=== PATIENT | male | born 1950 | race Caucasian/White ===

== ENCOUNTER → 2020-11-09 | Outpatient (CLI) | payer OTHER ==
[~2020-11-09] MED LIST: ALBU90I INH; ALBU90OI61 INH; ALPR1; AMLO10 PO; AMLO5 PO; ASPI325 PO; ASPI81EC PO; ATOR40TA PO; BENAML20/5; CHLO25 PO; CLON1; CLON1 PO; CLOP75 PO; DIPATR PO; EFFIENT PO; FLUSAL2505 INH; FURO20 PO; FURO40 PO; GEMF600 PO; HYDACE5; HYDACE5 PO; HYDCHL50; HYDPAM50 PO; LISI20 PO; LORA1 PO; LORA2 PO; LOSHYD PO; LOVA20 PO; LOVA40; METF500 PO; METO100ER PO; METO50ER PO; MOMENI; NAPR550 PO; NEBI10 PO; NITR.4SL SL; Norco 5-325 Ta1 EACH PO; OMEP20ER; OMEP20ER PO; OMEP40CA12 PO; OXYACE5T PO; PANT40 PO; POTCHL10ER PO; POTCHL20ER PO; PROM25 PO; Prilosec Otc20 MG PO; RANI150 PO; RXHYD5325 PO; RXOXYACE PO; RXSULTRIDS PO; SULTRIDS PO; TORSE20 PO; TRAZ150T57 PO; TRAZ50 PO; VENL75; WARF4 PO; WARF6 PO; Zofran Odt8 MG SL; [UNRECOGNIZED DRUG - REMARK]
[2020-11-09 13:41] LABS: BASOPHILS ABSOLUTE AUTO 0.07 K/mm3 (0.00-0.23); BASOPHILS PERCENT AUTO 1 % (0-2); EOSINOPHILS ABSOLUTE AUTO 0.37 K/mm3 (0.00-0.68); EOSINOPHILS PERCENT AUTO 4 % (0-6); Hematocrit 46.1 % (37.0-53.0); Hemoglobin 14.9 g/dL (13.5-17.5); IMMATURE GRAN ABSOLUTE AUTO 0.04 K/mm3 (0.00-0.10); IMMATURE GRAN PERCENT AUTO 0 % (0-1); LYMPHOCYTES ABSOLUTE AUTO 2.38 K/mm3 (0.84-5.20); LYMPHOCYTES PERCENT AUTO 23 % (21-46); MONOCYTES ABSOLUTE AUTO 0.52 K/mm3 (0.16-1.47); MONOCYTES PERCENT AUTO 5 % (4-13); Mean Corpuscular HGB 27.9 pg (26.0-34.0); Mean Corpuscular HGB Conc 32.3 g/dL (31.5-36.5); Mean Corpuscular Volume 86 fL (80-100); NEUTROPHILS ABSOLUTE AUTO 6.86 K/mm3 (1.96-9.15); NEUTROPHILS PERCENT AUTO 67 % (41-73); Platelet Count 274 K/mm3 (150-400); RDW Coefficient Variation 13.2 % (11.7-14.2); RDW Standard Deviation 41.4 fL (35.1-46.3); Red Blood Cell Count 5.35 M/mm3 (4.30-5.90); White Blood Cell Count 10.24 K/mm3 (4.00-11.30)
[2020-11-09 13:59] LABS: Alanine Aminotransfer (ALT/SGP 28 U/L (12-78); Albumin, Blood 3.8 g/dL (3.4-5.0); Albumin/Globulin Ratio 0.9 (0.8-1.8); Alk Phos 99 U/L (50-136); Anion Gap 5 mmol/L (6-16); Aspartate Aminotrans (AST/SGOT 12 U/L (12-37); Bilirubin, Total 0.4 mg/dL (0.1-1.0); Blood Urea Nitrogen 17 mg/dL (8-24); Bun/Creatinine Ratio 18.8 (12.0-20.0); CO2, Blood 32 mmol/L (21-32); Chloride, Blood 102 mmol/L (98-108); Globulin, Blood 4.2 g/dL (2.2-4.0); Glomerular Filtration Rate >60 (60-); Glucose, Blood 117 mg/dL (70-99); Sodium, Blood 139 mmol/L (136-145)
== END | disposition home or self-care (01) ==
LOC: LAB 12:17 → LAB SHORT 12:17
PROVIDERS: Nurse Practitioner
DX: R10.32 Left lower quadrant pain (principal)
CPT/HCPCS: 80053; 83690; 85025

== ENCOUNTER → 2021-05-18 | Outpatient (CLI) | payer OTHER ==
[2021-05-18 16:05] LABS: International Normalized Ratio 1.61; Prothrombin Time Results 16.4 Sec (9.7-11.5)
[2021-05-19 09:11] LABS: A/G RATIO 1.8 (1.2-2.2); ALKALINE PHOSPHATASE, S 81 IU/L (44-121); ALT (SGPT) 21 IU/L (0-44); AST (SGOT) 19 IU/L (0-40); BILIRUBIN, TOTAL 0.4 mg/dL (0.0-1.2); BUN 15 mg/dL (8-27); BUN/CREATININE RATIO 20 (10-24); CARBON DIOXIDE, TOTAL 23 mmol/L (20-29); CHLORIDE, SERUM 105 mmol/L (96-106); CHOLESTEROL, TOTAL 108 mg/dL (100-199); CREATININE, SERUM 0.74 mg/dL (0.76-1.27); EGFR IF AFRICN AM 110 (>59); EGFR IF NONAFRICN AM 95 (>59); GLOBULIN, TOTAL 2.4 g/dL (1.5-4.5); GLUCOSE, SERUM 118 mg/dL (65-99); HDL CHOLESTEROL 41 mg/dL (>39); LDL CHOLESTEROL CALC 46 mg/dL (0-99); POTASSIUM, SERUM 4.1 mmol/L (3.5-5.2); PROTEIN, TOTAL, SERUM 6.8 g/dL (6.0-8.5); SODIUM, SERUM 141 mmol/L (134-144); TRIGLYCERIDES 115 mg/dL (0-149); VLDL CHOLESTEROL CAL 21 mg/dL (5-40)
[2021-05-20 02:07] LABS: HEMOGLOBIN A1C 5.7 % (4.8-5.6)
== END | disposition home or self-care (01) ==
LOC: LAB SHORT 12:00
PROVIDERS: Family Medicine
DX: I48.91 Unspecified atrial fibrillation (principal); E78.5 Hyperlipidemia, unspecified; E11.9 Type 2 diabetes mellitus without complications; I10 Essential (primary) hypertension
CPT/HCPCS: 80053; 80061; 83036; 85610

== ENCOUNTER → 2021-08-16 | Outpatient (CLI) | payer OTHER ==
[~2021-08-16] MED LIST changes: +ONDA4ODT SL; +PERCOCET PO
[2021-08-16 13:46] LABS: BASOPHILS ABSOLUTE AUTO 0.04 K/mm3 (0.00-0.23); BASOPHILS PERCENT AUTO 0 % (0-2); EOSINOPHILS PERCENT AUTO 0 % (0-6); Hemoglobin 16.2 g/dL (13.5-17.5); IMMATURE GRAN ABSOLUTE AUTO 0.05 K/mm3 (0.00-0.10); IMMATURE GRAN PERCENT AUTO 0 % (0-1); LYMPHOCYTES ABSOLUTE AUTO 0.81 K/mm3 (0.84-5.20); LYMPHOCYTES PERCENT AUTO 7 % (21-46); MONOCYTES ABSOLUTE AUTO 0.22 K/mm3 (0.16-1.47); MONOCYTES PERCENT AUTO 2 % (4-13); Mean Corpuscular HGB 29.1 pg (26.0-34.0); Mean Corpuscular HGB Conc 33.8 g/dL (31.5-36.5); Mean Corpuscular Volume 86 fL (80-100); Mean Platelet Volume 10.4 fL (9.1-12.4); NEUTROPHILS ABSOLUTE AUTO 11.31 K/mm3 (1.96-9.15); NEUTROPHILS PERCENT AUTO 91 % (41-73); Platelet Count 425 K/mm3 (150-400); RDW Coefficient Variation 12.6 % (11.7-14.2); RDW Standard Deviation 39.3 fL (35.1-46.3); Red Blood Cell Count 5.57 M/mm3 (4.30-5.90); White Blood Cell Count 12.43 K/mm3 (4.00-11.30)
[2021-08-16 14:15] LABS: Alanine Aminotransfer (ALT/SGP 65 U/L (12-78); Albumin, Blood 4.1 g/dL (3.4-5.0); Albumin/Globulin Ratio 0.9 (0.8-1.8); Alk Phos 166 U/L (50-136); Anion Gap 15 mmol/L (6-16); Aspartate Aminotrans (AST/SGOT 18 U/L (12-37); Bilirubin, Total 0.7 mg/dL (0.1-1.0); Blood Urea Nitrogen 28 mg/dL (8-24); Bun/Creatinine Ratio 26.9 (12.0-20.0); CO2, Blood 25 mmol/L (21-32); Calcium, Blood 9.9 mg/dL (8.5-10.1); Chloride, Blood 98 mmol/L (98-108); Creatinine, Blood 1.04 mg/dL (0.60-1.20); Globulin, Blood 4.4 g/dL (2.2-4.0); Glomerular Filtration Rate >60 (60-); Glucose, Blood 151 mg/dL (70-99); Potassium, Blood 3.3 mmol/L (3.5-5.5); Sodium, Blood 138 mmol/L (136-145); Total Protein, Blood 8.5 g/dL (6.4-8.2)
== END | disposition home or self-care (01) ==
LOC: LAB SHORT 13:42
PROVIDERS: Physician Assistant Medical
DX: R10.13 Epigastric pain (principal)
CPT/HCPCS: 80053; 83690; 85025

== ENCOUNTER 2021-08-17 11:35 | Emergency (ER) | payer OTHER ==
[~2021-08-17] VITALS: Ht 177.8 cm; Wt 137.0 kg
[~2021-08-17 11:35] MED LIST changes: -ONDA4ODT SL; -PERCOCET PO
[2021-08-17 12:59] LABS: BASOPHILS ABSOLUTE AUTO 0.07 K/mm3 (0.00-0.23); BASOPHILS PERCENT AUTO 1 % (0-2); EOSINOPHILS ABSOLUTE AUTO 0.02 K/mm3 (0.00-0.68); EOSINOPHILS PERCENT AUTO 0 % (0-6); Hematocrit 46.6 % (37.0-53.0); Hemoglobin 15.5 g/dL (13.5-17.5); IMMATURE GRAN ABSOLUTE AUTO 0.06 K/mm3 (0.00-0.10); IMMATURE GRAN PERCENT AUTO 1 % (0-1); LYMPHOCYTES ABSOLUTE AUTO 1.94 K/mm3 (0.84-5.20); LYMPHOCYTES PERCENT AUTO 15 % (21-46); MONOCYTES ABSOLUTE AUTO 0.85 K/mm3 (0.16-1.47); MONOCYTES PERCENT AUTO 6 % (4-13); Mean Corpuscular HGB 28.9 pg (26.0-34.0); Mean Corpuscular HGB Conc 33.3 g/dL (31.5-36.5); Mean Corpuscular Volume 87 fL (80-100); Mean Platelet Volume 10.3 fL (9.1-12.4); NEUTROPHILS ABSOLUTE AUTO 10.33 K/mm3 (1.96-9.15); NEUTROPHILS PERCENT AUTO 78 % (41-73); Platelet Count 469 K/mm3 (150-400); RDW Coefficient Variation 12.7 % (11.7-14.2); RDW Standard Deviation 39.9 fL (35.1-46.3); Red Blood Cell Count 5.37 M/mm3 (4.30-5.90); White Blood Cell Count 13.27 K/mm3 (4.00-11.30)
[2021-08-17 13:26] LABS: Alanine Aminotransfer (ALT/SGP 51 U/L (12-78); Albumin, Blood 3.8 g/dL (3.4-5.0); Alk Phos 141 U/L (50-136); Anion Gap 11 mmol/L (6-16); Aspartate Aminotrans (AST/SGOT 18 U/L (12-37); Bilirubin, Total 0.6 mg/dL (0.1-1.0); Blood Urea Nitrogen 19 mg/dL (8-24); Bun/Creatinine Ratio 20.6 (12.0-20.0); CO2, Blood 25 mmol/L (21-32); Calcium, Blood 9.8 mg/dL (8.5-10.1); Chloride, Blood 106 mmol/L (98-108); Creatinine, Blood 0.92 mg/dL (0.60-1.20); Globulin, Blood 3.8 g/dL (2.2-4.0); Glomerular Filtration Rate >60 (60-); Glucose, Blood 129 mg/dL (70-99); Potassium, Blood 3.3 mmol/L (3.5-5.5); Sodium, Blood 142 mmol/L (136-145); Total Protein, Blood 7.6 g/dL (6.4-8.2)
[2021-08-17] MEDS ORDERED: PERCOCET PO (17:27)
[2021-08-17] MEDS ORDERED: ONDA4ODT SL (17:27)
== END 2021-08-17 17:57 | disposition home or self-care (01) ==
LOC: ER 11:35
PROVIDERS: Physician Assistant
DX: K91.0 Vomiting following gastrointestinal surgery (principal); G89.18 Other acute postprocedural pain; R10.9 Unspecified abdominal pain; I25.10 Atherosclerotic heart disease of native coronary artery without angina pectoris; I48.91 Unspecified atrial fibrillation; Z79.84 Long term (current) use of oral hypoglycemic drugs; Z79.01 Long term (current) use of anticoagulants; Z79.899 Other long term (current) drug therapy; Z98.84 Bariatric surgery status; Z88.0 Allergy status to penicillin; Z88.6 Allergy status to analgesic agent
CPT/HCPCS: 36415; 74177; 80053; 83690; 85025; 96374; 96375; 96376; 99284-25; A9270; J1170; J1200; J2405; J2765; J7120; Q9967

== ENCOUNTER → 2021-08-30 | Outpatient (CLI) | payer OTHER ==
[~2021-08-30] MED LIST changes: +ONDA4ODT SL; +PERCOCET PO
[2021-08-30 18:17] LABS: BASOPHILS ABSOLUTE AUTO 0.05 K/mm3 (0.00-0.23); BASOPHILS PERCENT AUTO 1 % (0-2); EOSINOPHILS ABSOLUTE AUTO 0.09 K/mm3 (0.00-0.68); EOSINOPHILS PERCENT AUTO 1 % (0-6); Hematocrit 48.8 % (37.0-53.0); Hemoglobin 16.1 g/dL (13.5-17.5); IMMATURE GRAN ABSOLUTE AUTO 0.02 K/mm3 (0.00-0.10); IMMATURE GRAN PERCENT AUTO 0 % (0-1); LYMPHOCYTES ABSOLUTE AUTO 1.99 K/mm3 (0.84-5.20); LYMPHOCYTES PERCENT AUTO 22 % (21-46); MONOCYTES PERCENT AUTO 8 % (4-13); Mean Corpuscular Volume 88 fL (80-100); Mean Platelet Volume 11.1 fL (9.1-12.4); NEUTROPHILS ABSOLUTE AUTO 6.29 K/mm3 (1.96-9.15); NEUTROPHILS PERCENT AUTO 69 % (41-73); Platelet Count 252 K/mm3 (150-400); RDW Coefficient Variation 13.2 % (11.7-14.2); RDW Standard Deviation 42.5 fL (35.1-46.3); Red Blood Cell Count 5.56 M/mm3 (4.30-5.90); White Blood Cell Count 9.14 K/mm3 (4.00-11.30)
[2021-08-30 18:26] LABS: International Normalized Ratio 1.97; Prothrombin Time Results 19.8 Sec (9.7-11.5)
[2021-08-30 18:45] LABS: Magnesium, Blood 2.1 mg/dL (1.6-2.4)
[2021-08-30 19:10] LABS: Alanine Aminotransfer (ALT/SGP 36 U/L (12-78); Albumin, Blood 3.8 g/dL (3.4-5.0); Albumin/Globulin Ratio 1.2 (0.8-1.8); Alk Phos 92 U/L (50-136); Anion Gap 12 mmol/L (6-16); Aspartate Aminotrans (AST/SGOT 26 U/L (12-37); Bilirubin, Total 0.7 mg/dL (0.1-1.0); Blood Urea Nitrogen 18 mg/dL (8-24); Bun/Creatinine Ratio 21.8 (12.0-20.0); CO2, Blood 25 mmol/L (21-32); Calcium, Blood 8.9 mg/dL (8.5-10.1); Chloride, Blood 104 mmol/L (98-108); Creatinine, Blood 0.82 mg/dL (0.60-1.20); Ferritin, Serum 65 ng/mL (26-388); Globulin, Blood 3.1 g/dL (2.2-4.0); Glomerular Filtration Rate >60 (60-); Glucose, Blood 115 mg/dL (70-99); Iron Serum 56 ug/dL (65-175); Percent Saturation 17.6 % (20.0-50.0); Phosphorus, Blood 3.4 mg/dL (2.5-4.9); Potassium, Blood 3.1 mmol/L (3.5-5.5); Sodium, Blood 141 mmol/L (136-145); Total Iron Binding Capacity 318 ug/dL (250-450); Total Protein, Blood 6.9 g/dL (6.4-8.2)
== END | disposition home or self-care (01) ==
LOC: LAB 16:17 → LAB SHORT 16:17
PROVIDERS: Family Medicine
DX: I48.91 Unspecified atrial fibrillation (principal); D64.9 Anemia, unspecified; E53.8 Deficiency of other specified B group vitamins; E55.9 Vitamin D deficiency, unspecified; E61.1 Iron deficiency; K91.2 Postsurgical malabsorption, not elsewhere classified; Z98.84 Bariatric surgery status
CPT/HCPCS: 80053; 82306; 82607; 82728; 82746; 83540; 83550; 83735; 84100; 85025; 85610

== ENCOUNTER → 2021-09-08 | Outpatient (CLI) | payer OTHER ==
[~2021-09-08] MED LIST changes: +K-Dur20 MEQ PO
[2021-09-08 17:00] LABS: Bun/Creatinine Ratio 17.2 (12.0-20.0); Creatinine, Blood 0.87 mg/dL (0.60-1.20); Potassium, Blood 2.8 mmol/L (3.5-5.5)
== END | disposition home or self-care (01) ==
LOC: LAB SHORT 14:57 → LAB 14:57
PROVIDERS: Nurse Practitioner
DX: E86.0 Dehydration (principal); R42 Dizziness and giddiness
CPT/HCPCS: 80048

== ENCOUNTER 2021-09-13 20:13 | Emergency (ER) | payer OTHER ==
[~2021-09-13] VITALS: Ht 177.8 cm; Wt 129.7 kg
== END 2021-09-13 22:38 | disposition home or self-care (01) ==
LOC: ER 20:13
DX: D68.8 Other specified coagulation defects (principal); I25.10 Atherosclerotic heart disease of native coronary artery without angina pectoris; Z88.0 Allergy status to penicillin; I48.91 Unspecified atrial fibrillation; Z88.8 Allergy status to other drugs, medicaments and biological substances; Z79.01 Long term (current) use of anticoagulants; Z79.899 Other long term (current) drug therapy
CPT/HCPCS: 36415; 85730; 99283; A9270; J3430

== ENCOUNTER → 2021-10-27 | Outpatient (CLI) | payer OTHER | END | disposition home or self-care (01) | LOC: LAB SHORT 17:40 → LAB 17:40 | DX: R82.90 Unspecified abnormal findings in urine (principal) | CPT/HCPCS: 87086 ==

== ENCOUNTER → 2022-06-02 | Outpatient (CLI) | payer OTHER ==
[2022-06-02 17:01] LABS: BASOPHILS ABSOLUTE AUTO 0.06 K/mm3 (0.00-0.23); BASOPHILS PERCENT AUTO 1 % (0-2); EOSINOPHILS ABSOLUTE AUTO 0.23 K/mm3 (0.00-0.68); EOSINOPHILS PERCENT AUTO 3 % (0-6); Hematocrit 42.5 % (37.0-53.0); Hemoglobin 14.2 g/dL (13.5-17.5); IMMATURE GRAN ABSOLUTE AUTO 0.02 K/mm3 (0.00-0.10); IMMATURE GRAN PERCENT AUTO 0 % (0-1); LYMPHOCYTES ABSOLUTE AUTO 2.85 K/mm3 (0.84-5.20); LYMPHOCYTES PERCENT AUTO 33 % (21-46); MONOCYTES ABSOLUTE AUTO 0.58 K/mm3 (0.16-1.47); MONOCYTES PERCENT AUTO 7 % (4-13); Mean Corpuscular HGB 29.3 pg (26.0-34.0); Mean Corpuscular HGB Conc 33.4 g/dL (31.5-36.5); Mean Corpuscular Volume 88 fL (80-100); Mean Platelet Volume 10.3 fL (9.1-12.4); NEUTROPHILS ABSOLUTE AUTO 4.87 K/mm3 (1.96-9.15); NEUTROPHILS PERCENT AUTO 57 % (41-73); Platelet Count 262 K/mm3 (150-400); RDW Coefficient Variation 13.9 % (11.7-14.2); RDW Standard Deviation 44.9 fL (35.1-46.3); Red Blood Cell Count 4.85 M/mm3 (4.30-5.90); White Blood Cell Count 8.61 K/mm3 (4.00-11.30)
[2022-06-02 17:39] LABS: Bun/Creatinine Ratio 13.2 (12.0-20.0); Creatinine, Blood 1.29 mg/dL (0.60-1.20); Potassium, Blood 3.3 mmol/L (3.5-5.5)
== END | disposition home or self-care (01) ==
LOC: LAB 15:12 → LAB SHORT 15:12
PROVIDERS: Family Medicine
DX: R19.7 Diarrhea, unspecified (principal); Z98.84 Bariatric surgery status
CPT/HCPCS: 80048; 85025

== ENCOUNTER → 2022-12-27 | Outpatient (CLI) | payer OTHER ==
[2022-12-27 16:51] LABS: International Normalized Ratio 1.56
[2022-12-27 17:09] LABS: Calcium, Blood 8.5 mg/dL (8.5-10.1); Creatinine, Blood 0.88 mg/dL (0.60-1.20); Potassium, Blood 3.6 mmol/L (3.5-5.5)
== END ==
LOC: LAB 15:03 → LAB SHORT 15:03
PROVIDERS: Family Medicine
DX: I48.91 Unspecified atrial fibrillation (principal); I25.10 Atherosclerotic heart disease of native coronary artery without angina pectoris; I10 Essential (primary) hypertension; E78.49 Other hyperlipidemia; Z95.5 Presence of coronary angioplasty implant and graft
CPT/HCPCS: 80048; 85610

== ENCOUNTER 2023-08-03 06:08 | Day surgery (SDC) | payer OTHER ==
[2023-08-03] VITALS (11 sets, daily range): BP systolic 121–152; BP diastolic 63–92
[~2023-08-03] VITALS: Ht 177.8 cm; Wt 100.2 kg
[~2023-08-03 06:08] MED LIST changes: +ALBU90OI INH; +ELIQUIS5 M2 PO; +FLUT1DIS5 INH; +Flonase 0.05% N16 GM; +MULVITA PO; +Nexium40 MG PO; +PREG100 PO; +Percocet 5-3251 EACH PO; +TAMS.4ER PO
[2023-08-03] MEDS ORDERED: CeFAZolin Sodium 2,000 MG in NS 100 ML IV SCH (06:50)
[2023-08-03] MEDS ORDERED: Lactated Ringer's 1,000 ML IV SCH (06:50)
[2023-08-03] MEDS ORDERED: propofoL 20 ML IV ONE (06:57)
[2023-08-03] MEDS ORDERED: Rocuronium Bromide 10 MG/ML 5ML Injection IV ONE ×4 (06:57→10:07)
[2023-08-03] MEDS ORDERED: Lidocaine HCl 2% 20 ML MDV ONE (06:57)
[2023-08-03] MEDS ORDERED: FentaNYL Citrate 50 MCG/ML 2 ML Injection ONE ×3 (06:58→11:31)
[2023-08-03] MEDS ORDERED: Lidocaine HCl 2% Jelly 120MG/6ML SYR (20MG PER ML) ONE (07:01)
[2023-08-03] MEDS ORDERED: Ondansetron HCl 2 MG / ML 2ML Vial IV PRN (07:05)
[2023-08-03] MEDS ORDERED: Midazolam HCl 1MG / ML 2ML Vial IV ONE ×2 (07:05→07:25)
[2023-08-03] MEDS ORDERED: Lidocaine HCl 1% 5 ML SYR INJ ONE (07:05)
[2023-08-03] MEDS ORDERED: FentaNYL Citrate 50 MCG/ML 2 ML Injection IV PRN ×3 (07:05)
[2023-08-03] MEDS ORDERED: Bupivacaine 0.5% HCl 5 MG/ML 30MLVIAL ONE (07:22)
[2023-08-03] MEDS ORDERED: Phenylephrine HCl 100 MCG/ML-NS 10MLSYR (1MG/10ML) ONE (07:39)
--- NOTE | 2023-08-03 07:46 | NUR ---
History, Chart, Medications and Allergies reviewed before start of procedure. Pre-Op teaching done. Pt verbalizes understanding. Patient States Post-Procedure ride home has been arranged WITH JOSE. REMOVED DENTURES AND PLACED IN DENTURE CUP WITH PT LABEL. REMOVED GLASSES AND PLACED IN BAG WITH PT LABEL. BOTH DENTURE CUP AND GLASSES BAG PLACED IN PACU.
[2023-08-03] MEDS ORDERED: ePHEDrine Sulfate 50 MG/ML 1ML Injection ONE (07:47)
[2023-08-03] MEDS ORDERED: Dexamethasone Sod Phos 10 MG/ML 1ML VIAL ONE (08:15)
[2023-08-03] MEDS ORDERED: Ondansetron HCl 2 MG / ML 2ML Vial ONE (08:15)
[2023-08-03] MEDS ORDERED: Sugammadex Sodium 200 MG/2ML SDV (100 MG/ML) ONE (10:47)
[2023-08-03] MEDS ORDERED: Flumazenil 0.1 MG / ML 5ML Vial ONE (11:07)
[2023-08-03] MEDS ORDERED: OxyCODONE 5 mg/Acetamin 325 mg TABLET PO PRN (11:25)
--- NOTE | 2023-08-03 12:05 | NUR ---
1147 REPORT RECEIVED FROM ELI JARRELL. VSS. PT ON RA. PT ABLE TO REPOSITION SELF IN BED. PT REQUESTING PO FOOD AND FLUIDS AND TOLERATING THEM WELL. PT REPORTS 5/10 STINGING PAIN TO SURGICAL SITE ON LEFT SIDE. PT STATES THIS PAIN IS TOLERABLE. PT DENIES NAUSEA OR OTHER DISCOMFORTS. PT HAS 4 INCISION SITES FILLED WITH EXOFEN THAT ARE C/D/I WITHOUT DRAINAGE, REDNESS OR SWELLING. PT SISTER AT BEDSIDE.
--- NOTE | 2023-08-03 12:33 | NUR ---
REVIEWED D/C INSTRUCTIONS WITH PATIENT. PT TOLERATED FOOD AT THIS TIME. REPORTS READY TO GO HOME. IV DC'D INTACT. PT ESCORTED OUT OF DEPARTMENT VIA WHEELCHAIR. HOME WITH FAMILY.
== END 2023-08-03 12:30 | disposition home or self-care (01) ==
LOC: ORSCMMR 06:08 → ORD 07:30 → ORSCMMR 07:30
PROVIDERS: Surgery
PROC: 0YUA4JZ Supplement Bilateral Inguinal Region with Synthetic Substitute, Percutaneous Endoscopic Approach (ICD-10-PCS; principal; 2023-08-03 07:30)
PROC: 0YUE4JZ Supplement Bilateral Femoral Region with Synthetic Substitute, Percutaneous Endoscopic Approach (ICD-10-PCS; principal; 2023-08-03 07:30)
PROC: 8E0W4CZ Robotic Assisted Procedure of Trunk Region, Percutaneous Endoscopic Approach (ICD-10-PCS; principal; 2023-08-03 07:30)
DX: K40.20 Bilateral inguinal hernia, without obstruction or gangrene, not specified as recurrent (principal); K41.00 Bilateral femoral hernia, with obstruction, without gangrene, not specified as recurrent; K45.0 Other specified abdominal hernia with obstruction, without gangrene; K45.8 Other specified abdominal hernia without obstruction or gangrene; D17.6 Benign lipomatous neoplasm of spermatic cord; K66.0 Peritoneal adhesions (postprocedural) (postinfection); E11.9 Type 2 diabetes mellitus without complications; I10 Essential (primary) hypertension; K21.9 Gastro-esophageal reflux disease without esophagitis; Z79.899 Other long term (current) drug therapy; I48.91 Unspecified atrial fibrillation; Z79.01 Long term (current) use of anticoagulants; N40.0 Benign prostatic hyperplasia without lower urinary tract symptoms; J44.9 Chronic obstructive pulmonary disease, unspecified; F41.9 Anxiety disorder, unspecified; F32.A Depression, unspecified; E78.5 Hyperlipidemia, unspecified; F17.210 Nicotine dependence, cigarettes, uncomplicated; G47.33 Obstructive sleep apnea (adult) (pediatric)
CPT/HCPCS: 82947; A9270; C1781; J0690; J1100; J2250; J2371; J2405; J2704; J3010; J7120